=== PATIENT | male | born 1995 | race Caucasian/White ===

== ENCOUNTER 2022-06-27 19:38 | Emergency (ER) | payer SELFPAY ==
[~2022-06-27] VITALS: Ht 165.1 cm; Wt 142.9 kg
[~2022-06-27 19:38] MED LIST: ATOM10; Bactrim Ds Tab1 EACH PO; CALZINTL TP; CEPH500 PO; DIPH50 PO; METPHE20CR PO; MUPI2TC TOP; PRED20 PO
[2022-06-27] MEDS ORDERED: AMOCLA875 PO (20:52)
== END 2022-06-27 21:10 | disposition home or self-care (01) ==
LOC: ER 19:38
DX: K04.7 Periapical abscess without sinus (principal); J32.9 Chronic sinusitis, unspecified; S02.5XXA Fracture of tooth (traumatic), initial encounter for closed fracture; X58.XXXA Exposure to other specified factors, initial encounter; Z87.891 Personal history of nicotine dependence
CPT/HCPCS: A9270

== ENCOUNTER 2022-06-29 15:41 | Emergency (ER) | payer SELFPAY ==
[~2022-06-29] VITALS: Ht 165.1 cm; Wt 142.9 kg
[~2022-06-29 15:41] MED LIST changes: +AMOCLA875 PO
[2022-06-29] MEDS ORDERED: OXYC5 (16:19)
[2022-06-29] MEDS ORDERED: IBUP800 PO (16:19)
[2022-06-29 17:08] LABS: Bun/Creatinine Ratio 15.4 (12.0-20.0); Creatinine, Blood 0.59 mg/dL (0.60-1.20); Potassium, Blood 4.5 mmol/L (3.5-5.5)
[2022-06-29 17:09] LABS: BASOPHILS PERCENT AUTO 1 % (0-2); EOSINOPHILS ABSOLUTE AUTO 0.25 K/mm3 (0.00-0.68); EOSINOPHILS PERCENT AUTO 3 % (0-6); Hematocrit 43.5 % (37.0-53.0); Hemoglobin 14.9 g/dL (13.5-17.5); IMMATURE GRAN ABSOLUTE AUTO 0.16 K/mm3 (0.00-0.10); IMMATURE GRAN PERCENT AUTO 2 % (0-1); LYMPHOCYTES ABSOLUTE AUTO 2.84 K/mm3 (0.84-5.20); LYMPHOCYTES PERCENT AUTO 30 % (21-46); MONOCYTES ABSOLUTE AUTO 0.96 K/mm3 (0.16-1.47); MONOCYTES PERCENT AUTO 10 % (4-13); Mean Corpuscular HGB 28.4 pg (26.0-34.0); Mean Corpuscular HGB Conc 34.3 g/dL (31.5-36.5); Mean Corpuscular Volume 83 fL (80-100); Mean Platelet Volume 9.6 fL (9.1-12.4); NEUTROPHILS ABSOLUTE AUTO 5.22 K/mm3 (1.96-9.15); NEUTROPHILS PERCENT AUTO 55 % (41-73); Platelet Count 329 K/mm3 (150-400); RDW Standard Deviation 36.3 fL (35.1-46.3); Red Blood Cell Count 5.24 M/mm3 (4.30-5.90); White Blood Cell Count 9.53 K/mm3 (4.00-11.30)
[2022-06-29] MEDS ORDERED: Cleocin HCl300 MG PO (17:55)
[2022-06-29] MEDS ORDERED: IBU800 MG PO (17:55)
== END 2022-06-29 18:53 | disposition home or self-care (01) ==
LOC: ER 15:41
PROVIDERS: Physician Assistant
DX: K02.9 Dental caries, unspecified (principal); H92.09 Otalgia, unspecified ear; Z87.891 Personal history of nicotine dependence; Z79.899 Other long term (current) drug therapy
CPT/HCPCS: 36415; 70487; 80048; 85025; A9270; Q9967